=== PATIENT | male | born 1980 | race Caucasian/White ===

== ENCOUNTER 2017-03-18 02:56 | Emergency (ER) | payer OTHER, BC ==
[2017-03-18] MEDS ORDERED: LANSOPRAZOLE30 MG PO (03:17)
[2017-03-18] MEDS ORDERED: MONTELUKAST SOD10 MG PO (03:17)
[2017-03-18] MEDS ORDERED: FLUTICASONE PRO16 GM NAS (03:17)
== END 2017-03-18 03:54 | disposition home or self-care (01) ==
LOC: ED 02:56
DX: S60.221A Contusion of right hand, initial encounter (principal); Z88.1 Allergy status to other antibiotic agents; Z79.899 Other long term (current) drug therapy; W31.89XA Contact with other specified machinery, initial encounter
CPT/HCPCS: 73130; 99283

== ENCOUNTER 2017-11-16 18:51 | Inpatient (IN) | payer BC ==
[~2017-11-16] VITALS: Ht 195.6 cm; Wt 114.9 kg
[~2017-11-16 18:51] MED LIST: FLUTICASONE PRO16 GM NAS; LANSOPRAZOLE30 MG PO; MONTELUKAST SOD10 MG PO
--- NOTE | 2017-11-18 06:01 | CONS ---
[facility] [address] [place], [place] [address] Signed DATE OF CONSULTATION: 11/17/2017 CHIEF COMPLAINT: Epigastric abdominal pain with nausea and vomiting. 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 He then had a small bowel obstruction in the 7th grade requiring lysis of adhesions through a midline periumbilical incision while living in [place], [place]. He returns now with 2-1/2 days of abdominal distention, nausea, and vomiting. He recognized it as a small bowel obstruction. In the emergency room, he was a little distended, but generally soft with unremarkable vital signs. His white count was initially up at 17, it is down to 10.2. He was a little dehydrated , we can see that on his labs. The CT scan showed the dilated bowel in the mid abdomen. However, he did have an upper GI small bowel follow-through in 2017, which showed a dilated loop probably chronic. Nevertheless, he is certainly symptomatic at this time. He was admitted overnight with an NG tube, several 100 mL of light bilious fluid has been extracted, and he said overall, he is feeling a little better. Consequently, I have been asked to admit him as a general surgeon on-call. PAST MEDICAL HISTORY: Ileal atresia, small bowel obstruction, and asthma. PAST SURGICAL HISTORY: Small bowel resection at for the ileal atresia and then the lysis of adhesions for the small bowel obstruction in the 7th grade in [place], [place]. SOCIAL HISTORY: He does not smoke. He has occasional drink. He is single and has no children. He works at our local [employer]. Starla Joshi is his primary care provider. He prefers the [facility], Amanda Santos, his mother at [phone]. FAMILY HISTORY: Not reviewed. REVIEW OF SYSTEMS: He had 10 systems reviewed and no new additions. ALLERGIES: Amoxicillin. MEDICATIONS: Montelukast, Protonix, and fluticasone. Electronically Signed By: EMMY STAFFORD MD 11/18/17 0601 PATIENT NAME: NAYANA SANTOS CONSULTATION DATE OF : 80 REPORT #: [id number] PHYSICIAN: EMMY STAFFORD MD PCP: STARLA JOSHI REPORT IS CONFIDENTIAL AND NOT TO BE RELEASED WITHOUT AUTHORIZATION [facility] [address] [place], [place] [address] Signed PHYSICAL EXAMINATION: VITAL SIGNS: Blood pressure 120/73, heart rate 75, respiratory rate 16, temperature is 98.7, he is 95% on room air. He is 6 feet 5 inches and 114 kg. GENERAL: This is a 37-year-old gentleman who appears generally healthy and at his stated age. He was sleeping, but easily awakened. He does not appear systemically ill or toxic. His friend is at the bedside. LUNGS: Clear to auscultation. HEART: Regular rate and rhythm. ABDOMEN: Soft, flat, nontender with a small umbilical hernia, which is reducible. LABORATORY DATA: White count was 17, it is down to 10.2; hemoglobin 15; neutrophils are 84, down to 70. BUN 16, creatinine 1.0. His liver function tests are negative. Albumin is 4.6. RADIOGRAPHIC STUDIES: The upper GI small bowel follow-through from March 2017, showed dilated section of small bowel out in the ileum, probably chronic. Chest x-ray showed his NG tube is in the stomach. CT scan and pelvis shows mid small bowel obstruction. ASSESSMENT AND PLAN: Nayana is a 37-year-old gentleman, who may have an acute on chronic small bowel obstruction. At this point, he has been admitted, IV fluids and NG tube was placed. We held his antibiotics for now. We are going to treat him conservatively and see how it goes. If not, he may need surgery once again. He is quite aware of this. He has expressed understanding and agrees above plan. Emmy Stafford MD ALB/MODL /[id number] cc: MD Starla Cornell PA Copies: EMMY STAFFORD MD Electronically Signed By: EMMY STAFFORD MD 11/18/17 0601 PATIENT NAME: NAYANA SATNOS CONSULTATION DATE OF : 80 REPORT #: [id number] PHYSICIAN: EMMY STAFFORD MD PCP: STARLA JOSHI REPORT IS CONFIDENTIAL AND NOT TO BE RELEASED WITHOUT AUTHORIZATION [address] [address] Signed STARLA JOSHI ~ Electronically Signed By: EMMY STAFFORD MD 11/18/17 0601 PATIENT NAME: NAYANA SANTOS CONSULTATION DATE OF : 80 REPORT #: [id number] PHYSICIAN: EMMY STAFFORD MD PCP: STARLA JOSHI REPORT IS CONFIDENTIAL AND NOT TO BE RELEASED WITHOUT AUTHORIZATION
[2017-11-18] MEDS ORDERED: VENTOLIN HFA18 GM INH (09:41)
[2017-11-18] MEDS ORDERED: WAL-PHED 12 HO120 MG PO (11:05)
--- NOTE | 2017-11-22 19:49 | DS ---
[facility] [address] [place], [place] [address] Signed ADMISSION DATE: 11/19/2017 DISCHARGE DATE: 11/21/2017 FINAL DIAGNOSES: 1. Resolved partial small bowel obstruction. 2. History of ileal atresia at , requiring small bowel resection x3 with re-anastomosis. 3. Small bowel obstruction, requiring lysis of adhesions in 7th grade. 4. Small periumbilical incisional hernia. PROCEDURES: 1. CT scan of abdomen AND pelvis. 2. Small-bowel follow-through. HISTORY OF PRESENT ILLNESS: Matt is a 37-year-old gentleman, who was born with ileal atresia. He required resection of 3 segments of his small bowel according to his mother. He was put back together and fortunately did well. In the 7th grade, however, he developed a small bowel obstruction, requiring lysis of adhesions. He came to our emergency room with abdominal distention, nausea and vomiting and felt like he had a bowel obstruction. In the emergency room, his vital signs were fine, but his white count was elevated and the CT scan showed what looked like a small bowel obstruction. I was asked to admit him as the general surgeon on-call. HOSPITAL COURSE: Matt was admitted as above and we withheld antibiotics. We placed an NG tube with return of light bilious fluid and gave him plenty of IV fluids. Last summer, he had an upper GI small-bowel follow-through performed and he has a persistently dilated section of small bowel probably twice normal in diameter. The rest of small bowel seemed unremarkable. He made improvements and had passed some gas and bowel movements and his NG tube output dropped off, so I checked a small-bowel follow-through and again, he did fine except for this persistently dilated section of small bowel. I suspect he has an anastomosis or either into that small bowel and it is probably a partial closed-loop obstruction so to speak. Nevertheless, he continued to do well. He has tolerated his soft diet and at this point, we are going to be discharging him to home. His abdominal exam is benign. He is continued to have several bowel movements and passed gas. DISCHARGE PLANS AND MEDICATIONS: Matt will be discharged to home with no new medications. He can resume any chronic medications that he had. I have asked him to follow a low-fiber diet at least for 4 or 5 days and then go back to a regular diet. I have reviewed our findings with Matt and Electronically Signed By: EMMY STAFFORD MD 11/22/17 1949 PATIENT NAME: BOB SANTOS DISCHARGE SUMMARY DATE OF : 80 REPORT #: [id number] PHYSICIAN: EMMY STAFFORD MD PCP: STARLA BASHIR REPORT IS CONFIDENTIAL AND NOT TO BE RELEASED WITHOUT AUTHORIZATION [facility] [address] [place], [place] [address] Signed his mom multiple times. We would only operate for Matt obviously if we absolutely needed to. There is always a chance that he also has recurrent scar tissue causing trouble as well. I explained to Matt that he can follow up in my office as needed. He has expressed understanding and agrees with above plan. MD CRYSTAL oCrnell/CHANELL /[id number] cc: MD Starla Cornell PA Copies: EMMY STAFFORD MD, LINDA PA ~ Electronically Signed By: EMMY STAFFORD MD 11/22/17 1949 PATIENT NAME: BOB SANTOS DISCHARGE SUMMARY DATE OF : 80 REPORT #: [id number] PHYSICIAN: EMMY STAFFORD MD PCP: STARLA BASHIR REPORT IS CONFIDENTIAL AND NOT TO BE RELEASED WITHOUT AUTHORIZATION
== END 2017-11-21 11:19 | disposition home or self-care (01) | DRG 390 ==
LOC: ED 18:51 → MS 18:52
PROVIDERS: ADMIT Colon & Rectal Surgery
PROC: 0D9670Z Drainage of Stomach with Drainage Device, Via Natural or Artificial Opening (ICD-10-PCS; principal; 2017-11-16)
DX: K56.51 Intestinal adhesions [bands], with partial obstruction (principal); J45.909 Unspecified asthma, uncomplicated; K43.2 Incisional hernia without obstruction or gangrene; Z90.49 Acquired absence of other specified parts of digestive tract; Z88.1 Allergy status to other antibiotic agents
CPT/HCPCS: 36415; 43752; 51798; 71045; 74019; 74177; 74250; 80048; 80053; 81001; 83690; 83735; 84075; 84100; 85025; 96361; 96372; 96374; 96375; 96376; 99285; 99406; G0378; J1170; J1644; J2405; J7030; J7120; Q9967

== ENCOUNTER 2019-03-02 08:38 | Emergency (ER) | payer BC ==
[~2019-03-02] VITALS: Ht 195.6 cm; Wt 114.9 kg
[~2019-03-02 08:38] MED LIST changes: +VENTOLIN HFA18 GM INH; +WAL-PHED 12 HO120 MG PO
--- OUTSIDE RECORDS SUMMARY | 2019-03-02 08:40 | XMS ---
PreManage Notification: BOB SANTOS Security Rib Bender Events No recent Security Events currently on file [facility] There are no care providers on record at this time. Carolyn has no Care Guidelines for this patient. Gina VISIT COUNT (12 MO.) 1 RACHEAL [place] TOTAL 1 NOTE: Visits indicate total known visits. ED/UCC VISIT TRACKING (12 MO.) 03/02/2019 08:39 [place] [place] TYPE: Emergency COMPLAINT: - CHEST DISCOMFORT INPATIENT VISIT TRACKING (12 MO.) No inpatient visits to display in this time frame [email or web address]
--- NOTE | 2019-03-02 19:05 | EKG ---
[facility] [address] [facility] [place] [address] Signed Normal sinus rhythm Incomplete right bundle branch block Borderline ECG No previous ECGs available Confirmed by BEATRIZ CASTANON MD ([id number]) on 03/02/2019 7:04:50 PM Electronically Signed By: BEATRIZ CASTANON MD 03/02/19 1905 PATIENT NAME: BOB SANTOS Electrocardiogram DATE OF : 80 PHYSICIAN: BEATRIZ CASTANON MD REPORT #: [id number] REPORT IS CONFIDENTIAL AND NOT TO BE RELEASED WITHOUT AUTHORIZATION
== END 2019-03-02 10:25 | disposition home or self-care (01) ==
LOC: ED 08:38
DX: R07.89 Other chest pain (principal); R00.2 Palpitations; Z87.891 Personal history of nicotine dependence; Z88.0 Allergy status to penicillin; Z79.899 Other long term (current) drug therapy
CPT/HCPCS: 71045; 80053; 83735; 84439; 84443; 84484; 85025; 93005; 93010; 99285-25

== ENCOUNTER 2019-09-13 18:34 | Emergency (ER) | payer BC ==
[~2019-09-13] VITALS: Ht 195.6 cm; Wt 114.9 kg
--- NOTE | 2019-09-13 21:17 | EKG ---
[facility] [address] [facility] [place], [place] [address] Signed Normal sinus rhythm Possible Left atrial enlargement Incomplete right bundle branch block Borderline ECG When compared with ECG of 02-MAR-2019 08:50, No significant change was found Confirmed by BEATRIZ CASTANON MD ([id number]) on 09/13/2019 9:16:50 PM Electronically Signed By: BEATRIZ CASTANON MD 09/13/19 2117 PATIENT NAME: BOB SANTOS JOSE Electrocardiogram DATE OF : 80 PHYSICIAN: BEATRIZ CASTANON MD REPORT #: [id number] REPORT IS CONFIDENTIAL AND NOT TO BE RELEASED WITHOUT AUTHORIZATION
== END 2019-09-13 21:07 | disposition home or self-care (01) ==
LOC: ED 18:34
DX: R00.2 Palpitations (principal); R20.2 Paresthesia of skin; Z88.0 Allergy status to penicillin; Z79.899 Other long term (current) drug therapy
CPT/HCPCS: 70450; 71045; 80053; 83735; 84484; 85025; 93005; 93010; 99285-25

== ENCOUNTER 2019-10-21 07:19 | Day surgery (SDC) | payer BC ==
[~2019-10-21] VITALS: Ht 195.6 cm; Wt 123.8 kg
[2019-10-21] MEDS ORDERED: CITALOPRAM HBR20 MG PO (07:35)
--- NOTE | 2019-10-21 08:27 | NUR ---
10/21/19 0827 Kortney Maher 08-PT ARRIVES TO PACU FROM ENDO ROOM ON 3 L VIA NC. PT AWAKE AND TALKING TO RNS. PT FALLS BACK ASLEEP BUT WAKES EASILY TO VERBAL STIMULUS. VSS.
--- NOTE | 2019-10-21 11:58 | OR ---
[facility] [address] [place], [place] [address] Signed DATE OF OPERATION: 10/21/2019 SURGEON: Emmy Stafford MD PREOPERATIVE DIAGNOSES: 1. Gastroesophageal reflux disease. 2. Hiatal hernia. 3. Chronic diarrhea. 4. Nausea. POSTOPERATIVE DIAGNOSES: 1. 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 2. Moderate diffuse gastritis. PROCEDURE: EGD with CLOtest and biopsies of the duodenum, pyloric bulb, antrum, GE junction, distal esophagus and mid esophagus. ESTIMATED BLOOD LOSS: None. INDICATIONS: Matt is a 39-year-old gentleman, asked to see me for upper endoscopy. He describes acid reflux for many years. He had an upper GI last year. There was a small hiatal hernia with acid reflux. There was mention of felinization of the lower esophagus. He has been on Protonix. He is still having breakthrough symptoms. He also had ileal atresia at and lost a large amount of his small bowel. Apparently, the ileocecal valve was in place. He has a chronically dilated area of small bowel 20 cm in length and probably 8 cm in diameter. That may or may not explain his chronic intermittent nausea. He also talks about the lifelong diarrhea and the heartburn with the nausea. He also has significant anxiety and panic attacks. In the office, I gave him a booklet on upper endoscopy. We reviewed that in detail. He understands the nature of the test along with the risks including, but not limited to gas bloating, crampy abdominal pain, bleeding, perforation requiring surgery, and missed diagnosis. We also discussed the need for IV conscious sedation. We asked Matt to go ahead and take two of his Xanax pills before coming to the hospital. He did comply with that today. That did help out. He had expressed understanding and wished to proceed. PROCEDURE NOTE: Matt was taken into our endoscopy suite and placed in the supine semi-recumbent Electronically Signed By: EMMY STAFFORD MD 10/21/19 1158 PATIENT NAME: BOB SANTOS OPERATIVE REPORT DATE OF : 80 REPORT #: [id number] PHYSICIAN: EMMY STAFFORD MD PCP: STARLA BASHIR REPORT IS CONFIDENTIAL AND NOT TO BE RELEASED WITHOUT AUTHORIZATION [facility] [address] [place] [address] Signed position. The posterior oropharynx was anesthetized with Hurricaine spray. A bite block was utilized for the case. He was given a total of 8 mg of Versed and 150 mcg of fentanyl to cover the case. The adult gastroscope had been introduced and advanced out into the 2nd portion of the duodenum without difficulty. The duodenum and pyloric bulb were visibly unremarkable. We went ahead and took a biopsy from the duodenum and the pyloric bulb for pathologic review. However, the stomach showed moderate diffuse erythematous changes throughout consistent with gastritis. Consequently, we took a biopsy of the antrum for CLOtest as well as pathologic review. Upon retroflexion of scope, he has what might be a very small hiatal hernia. However, it appears more likely that he has a very short lower esophageal sphincter. It measured out from 40-42 cm. We saw no gastric or esophageal varices. There were no ulcerations in the pyloric bulb or the stomach. His lower esophageal sphincter is patent but seems to be short. There was minimal disruption to the Z-line. We went ahead and took a biopsy of the Z-line for pathologic review. There was no Daigle's mucosa. We saw no felinization of the esophagus. Nevertheless, we went ahead and took a biopsy of the distal esophagus as well as the mid esophagus. The proximal esophagus was also unremarkable. After this, the gas was suctioned out and the gastroscope removed. Matt tolerated procedure quite well. RECOMMENDATIONS: I will see Matt back in my office in 7 to 14 days to review his results. In the meantime, he will stay on his Protonix. Emmy Stafford MD [facility]/MODL /[id number] cc: MD Starla Cornell PA Copies: EMMY STAFFORD MD Electronically Signed By: EMMY STAFFORD MD 10/21/19 1158 PATIENT NAME: BOB SANTOS OPERATIVE REPORT DATE OF : 80 REPORT #: [id number] PHYSICIAN: EMMY STAFFORD MD PCP: STARLA BASHIR REPORT IS CONFIDENTIAL AND NOT TO BE RELEASED WITHOUT AUTHORIZATION [address] [address] Signed STARLA BASHIR ~ Electronically Signed By: EMMY STAFFORD MD 10/21/19 1158 PATIENT NAME: BOB SANTOS OPERATIVE REPORT DATE OF : [birth year] REPORT #: [id number] PHYSICIAN: EMMY STAFFORD MD PCP: STARLA BASHIR REPORT IS CONFIDENTIAL AND NOT TO BE RELEASED WITHOUT AUTHORIZATION
--- NOTE | 2019-10-22 16:01 | PATH ---
[facility] [place] [facility] [address] [place], [place] [address] Signed SPECIMEN(S): A DUODENUM, SECOND SPECIMEN(S): B DUODENUM BULB SPECIMEN(S): C ANTRUM/PYLORUS SPECIMEN(S): D GE JUNCTION SPECIMEN(S): E DISTAL LOWER ESOPHAGUS SPECIMEN(S): F MIDDLE ESOPHAGUS SPECIMEN SOURCE: A. DUODENUM, SECOND B. DUODENUM BULB C. ANTRUM/PYLORUS D. GE JUNCTION E. DISTAL LOWER ESOPHAGUS F. MIDDLE ESOPHAGUS CLINICAL HISTORY: Hx: Acid reflux, small hiatal hernia, diarrhea. Postop: Gastritis, small hiatal hernia. MICROSCOPIC DESCRIPTION: Histologic sections of all submitted blocks are examined by light microscopy. These findings, together with the gross examination, support the pathologic diagnosis. FINAL PATHOLOGIC DIAGNOSIS: A. Duodenum, second portion, biopsy: - Duodenal mucosa with no histopathologic abnormality. - Negative for dysplasia or malignancy. B. Duodenum, bulb, biopsy: - Duodenal mucosa with mild increased lamina propria chronic inflammation. - Negative for dysplasia or malignancy. C. Stomach, antrum/pylorus, biopsy: - Antral mucosa with mild mucosal capillary congestion. - Negative for Helicobacter organisms on HE stain. - Negative for dysplasia or malignancy. D. Gastroesophageal junction, biopsy: - Squamocolumnar junctional mucosa with chronic inflammation and reactive epithelial changes, consistent with reflux esophagitis. - Negative for Helicobacter organisms on HE stain. - Negative for intestinal metaplasia, dysplasia, or malignancy. E. Esophagus, distal lower, biopsy: - Squamous mucosa with reactive changes consistent with reflux esophagitis. PATIENT NAME: BOB SANTOS PATHOLOGY DATE OF : [birth year] REPORT #: [id number] PHYSICIAN: CARISSA SHAW PCP: JONATHAN BASHIR REPORT IS CONFIDENTIAL AND NOT TO BE RELEASED WITHOUT AUTHORIZATION [facility] [place] [facility] [address] [place], [place] [address] Signed - Negative for intestinal metaplasia, dysplasia, or malignancy. F. Esophagus, middle, biopsy: - Squamous mucosa with minimal chronic inflammation, suggestive of mild reflux esophagitis. - Negative for intestinal metaplasia, dysplasia, or malignancy. NAL:emb:C2NR GROSS DESCRIPTION: Six specimens are received in six containers, labeled "ST." A. The specimen, labeled "ST, #1" and "duodenum, second" on the requisition, is received in formalin and consists of a 0.3 cm soft carroll tissue fragment that is entirely submitted in cassette A1. B. The specimen, labeled "ST, #2" and "duodenum bulb" on the requisition, is received in formalin and consists of a 0.2 cm soft carroll tissue fragment that is submitted in toto in cassette B1. C. The specimen, labeled "ST, #3" and "antrum/pylorus" on the requisition, is received in formalin and consists of a 0.3 cm soft carroll tissue fragment that is submitted in toto in cassette C1. D. The specimen, labeled "ST, #4" and "GE junction" on the requisition, is received in formalin and consists of a 0.4 cm soft carroll tissue fragment that is submitted in toto in cassette D1. E. The specimen, labeled "ST, #5" and "distal lower esophagus" on the requisition, is received in formalin and consists of a 0.3 cm soft muhammad flat tissue fragment that is submitted in toto in cassette E1. F. The specimen, labeled "ST, #6" and "middle esophagus" on the requisition, is received in formalin and consists of a 0.3 cm soft carroll flat tissue fragment that is submitted in toto in cassette F1. SS (under the direct supervision of a pathologist) The Gross Description was prepared using a voice recognition system. The report was reviewed for accuracy; however, sound-alike word errors, addition and/or deletions may occur. If there is any question about this report, please contact Client Services. PERFORMING LABORATORY: The technical component was performed by [employer] [address] (Aeronautical Test Engineer: Mickie Shafer MD; CLIA# [id number]). Professional interpretation was performed by [facility], [address] [address] (CLIA# [id number]). PATIENT NAME: BOB SANTOS PATHOLOGY DATE OF : [birth year] REPORT #: [id number] PHYSICIAN: CARISSA PATHOLOGY PCP: JONATHAN BASHIR REPORT IS CONFIDENTIAL AND NOT TO BE RELEASED WITHOUT AUTHORIZATION [facility] [place] [facility] [address] [place], [place] [address] Signed Diagnostician: Sejal Mendez MD Pathologist Electronically Signed 10/22/2019 Copies: ~ PATIENT NAME: TOMIGORARACELI GARCIA PATHOLOGY DATE OF : 80 REPORT #: [id number] PHYSICIAN: CARISSA SHAW PCP: JONATHAN BASHIR REPORT IS CONFIDENTIAL AND NOT TO BE RELEASED WITHOUT AUTHORIZATION
== END 2019-10-21 09:10 | disposition home or self-care (01) ==
LOC: OPS 07:19 → DS 07:19 → OPS 08:15
PROVIDERS: Colon & Rectal Surgery
PROC: 0DB78ZX Excision of Stomach, Pylorus, Via Natural or Artificial Opening Endoscopic, Diagnostic (ICD-10-PCS; 2019-10-21)
PROC: 0DB38ZX Excision of Lower Esophagus, Via Natural or Artificial Opening Endoscopic, Diagnostic (ICD-10-PCS; 2019-10-21)
PROC: 0DB48ZX Excision of Esophagogastric Junction, Via Natural or Artificial Opening Endoscopic, Diagnostic (ICD-10-PCS; 2019-10-21)
PROC: 0DB28ZX Excision of Middle Esophagus, Via Natural or Artificial Opening Endoscopic, Diagnostic (ICD-10-PCS; 2019-10-21)
PROC: 0DB98ZX Excision of Duodenum, Via Natural or Artificial Opening Endoscopic, Diagnostic (ICD-10-PCS; principal; 2019-10-21 08:15)
DX: K21.0 Gastro-esophageal reflux disease with esophagitis (principal); K29.80 Duodenitis without bleeding; K29.70 Gastritis, unspecified, without bleeding; K52.9 Noninfective gastroenteritis and colitis, unspecified; I10 Essential (primary) hypertension; E66.9 Obesity, unspecified; E03.9 Hypothyroidism, unspecified; F41.9 Anxiety disorder, unspecified; F17.220 Nicotine dependence, chewing tobacco, uncomplicated; Z79.899 Other long term (current) drug therapy; Z98.890 Other specified postprocedural states; Z88.0 Allergy status to penicillin
CPT/HCPCS: 86677; 99153; G0500; J2250; J3010

== ENCOUNTER 2022-06-27 22:04 | Emergency (ER) | payer BC ==
[~2022-06-27] VITALS: Ht 195.6 cm; Wt 129.9 kg
[~2022-06-27 22:04] MED LIST changes: +CITALOPRAM HBR20 MG PO
[2022-06-28] MEDS ORDERED: HYDROXYZINE HCL50 MG PO (02:06)
--- NOTE | 2022-06-30 20:44 | EKG ---
[facility] [address] [facility] [place] [address] Signed Normal sinus rhythm Normal ECG When compared with ECG of 13-SEP-2019 18:44, No significant change was found Confirmed by Stephanie Brock MD () on 06/30/2022 8:44:23 PM Electronically Signed By: STEPHANIE BROCK MD 06/30/222043 PATIENT NAME: BOB SANTOS Electrocardiogram DATE OF : 80 PHYSICIAN: STEPHANIE BROCK MD REPORT #: [id number] REPORT IS CONFIDENTIAL AND NOT TO BE RELEASED WITHOUT AUTHORIZATION
== END 2022-06-28 02:36 | disposition home or self-care (01) ==
LOC: ED 22:04
DX: F41.9 Anxiety disorder, unspecified (principal); R51.9 Headache, unspecified; Z88.0 Allergy status to penicillin; R03.0 Elevated blood-pressure reading, without diagnosis of hypertension
CPT/HCPCS: 36415; 70450; 70496; 70498; 80053; 81001; 84484; 85025; 93005; 93010; 99285-25; Q9967

== ENCOUNTER 2023-01-31 06:46 | Day surgery (SDC) | payer BC ==
[2023-01-22 15:37] VITALS: BP 141/98
[~2023-01-31] VITALS: Ht 195.6 cm; Wt 131.8 kg
[~2023-01-31 06:46] MED LIST changes: +CELEXA10 MG PO; +HYDROXYZINE HCL50 MG PO
[2023-01-31 07:08] VITALS: BP 147/92
--- NOTE | 2023-01-31 09:08 | NUR ---
01/31/23 0908 Leny Aldana SN 0902 PATIENT ARRIVES TO PACU UNRESPONSIVE TO PAINFUL STIMULI. ORAL AIRWAY IN PLACE. RESP EVEN AND UNLABORED. O2 MASK AT 10 LITERS.
[2023-01-31 09:39] VITALS: BP 122/85
--- NOTE | 2023-01-31 10:26 | OR ---
[facility] [address] [place], [place] [address] Signed DATE OF OPERATION: 01/31/2023 SURGEON: Emmy Stafford MD PREOPERATIVE DIAGNOSES: 1. Maternal grandfather with colon cancer in his 60s. 2. Maternal great uncle with colon cancer in his 50s. 3. Maternal half uncle with colon cancer in his 60s. 4. Maternal uncle with colon cancer approximate age 70. 5. Mother with colon polyps in her 50s. POSTOPERATIVE DIAGNOSES: 1. Minimal sigmoid diverticulosis. 2. 5 mm polyp at 55 cm in left colon. 3. 5 mm polyp at 28 cm in sigmoid colon. 4. 7 mm polyp at 5 cm in rectum. 5. Minimal to moderate internal and external hemorrhoids. PROCEDURE: Colonoscopy with hot biopsy. ESTIMATED BLOOD LOSS: None. INDICATIONS: Nayana is a 42-year-old gentleman, asked to see me for his initial colonoscopy. He has an extensive history of colon cancer and polyps as listed above. I 1st met Matt back in 2019 at the age of 38. He wanted to hold off and come at this time for his colonoscopy. He told me that as a child he needed surgery for ileal atresia and has a loop of bowel that bothers him. He later had lysis of adhesions and appendectomy in the 7th grade. He has a persistent dilated loops of small bowel and he has some diarrhea associated with that. He goes on a clear liquid diet and it passes. In the office, I gave him a pamphlet on colonoscopy and we reviewed that together. He understands there is risk including, but not limited to gas bloating, crampy abdominal pain, bleeding, perforation requiring surgery and missed diagnosis. We also reviewed the written instructions for the bowel prep line by line. Also because of his significant sleep apnea, we asked for monitored anesthesia care with propofol infusion. That actually proved to be a hunter decision. He had expressed understanding and wished to proceed. PROCEDURE NOTE: Electronically Signed By: EMMY STAFFORD MD 01/31/23 1026 PATIENT NAME: NAYANA SANTOS OPERATIVE REPORT DATE OF : 80 REPORT #: [id number] PHYSICIAN: EMMY STAFFORD MD PCP: ROMEO PEREZ PA-C REPORT IS CONFIDENTIAL AND NOT TO BE RELEASED WITHOUT AUTHORIZATION [facility] [address] [place], [place] [address] Signed Matt was taken into our endoscopy suite and placed in the left lateral decubitus position. He was given monitored anesthesia care with propofol infusion per our nurse j2ee java developer. He needed constant airway control as well as an oral airway. He seems to have central sleep apnea. A digital rectal exam was performed and he does have moderate circumferential external hemorrhoids. He had good sphincter tone. There were no masses. The adult colonoscope was introduced and advanced under direct visualization of the camera up into the cecum without difficulty. His prep was good. The scope was then slowly withdrawn. We took pictures throughout for photodocumentation. The above-mentioned polyps were easily removed with the help of hot biopsy forceps. He also had a few small diverticula in the sigmoid colon. They were small, few in number and scattered about. Once in the rectum, the scope was retroflexed and he does have small to moderate sized internal hemorrhoid columns as well. After this, the gas was suctioned out and the colonoscope removed. Matt tolerated the procedure quite well. RECOMMENDATIONS: I will see Matt back in my office in 7 to 14 days to review his results. It looks like he is going to stay on the five year plan. He will always need monitored anesthesia care with propofol infusion. Emmy Stafford MD ALB/MODL /[id number] cc: PHAM Jones MD Copies: ROMEO PEREZ PA-C, ANDREW L MD ~ Electronically Signed By: EMMY STAFFORD MD 01/31/23 1026 PATIENT NAME: NAYANA SANTOS OPERATIVE REPORT DATE OF : [birth year] REPORT #: [id number] PHYSICIAN: EMMY STAFFORD MD PCP: ROMEO PEREZ PA-C REPORT IS CONFIDENTIAL AND NOT TO BE RELEASED WITHOUT AUTHORIZATION
--- NOTE | 2023-01-31 18:46 | EKG ---
[facility] [address] [facility] [place], [place] [address] Signed Normal sinus rhythm Normal ECG When compared with ECG of 27-JUN-2022 23:44, No significant change was found Confirmed by BEATRIZ CASTANON MD ([id number]) on 01/31/2023 6:45:58 PM Electronically Signed By: BEATRIZ CASTANON MD 01/31/23 1846 PATIENT NAME: BOB SANTOS Electrocardiogram DATE OF : 80 PHYSICIAN: BEATRIZ CASTANON MD REPORT #: [id number] REPORT IS CONFIDENTIAL AND NOT TO BE RELEASED WITHOUT AUTHORIZATION
--- NOTE | 2023-02-04 15:08 | PATH ---
[facility] [address] [facility] [place], [place] [address] Signed SPECIMEN(S): A DESCENDING/LEFT COLON POLYP AT 55 CM SPECIMEN(S): B SIGMOID POLYP AT 28 CM SPECIMEN(S): C RECTAL POLYPS AT 5 CM SPECIMEN SOURCE: A. DESCENDING/LEFT COLON POLYP AT 55 CM B. SIGMOID POLYP AT 28 CM C. RECTAL POLYPS AT 5 CM CLINICAL HISTORY: Extensive family history of colon polyps and cancer. Post: Polyps x 3, diverticulosis, internal and external hemorrhoids. FINAL PATHOLOGIC DIAGNOSIS: A Descending / left colon polyp at 55 cm: - Tubular adenoma (one fragment). B. Sigmoid polyp at 28 cm: - Tubular adenoma (one fragment). C. Rectal polyps at 5 cm: - Tubular adenoma (multiple fragments). JVR:[id number] MICROSCOPIC EXAMINATION: Histologic sections of all submitted blocks are examined by light microscopy. These findings, together with the gross examination, support the pathologic diagnosis. GROSS DESCRIPTION: A. The specimen, labeled and designated "Julianne, descending/left colon polyp at 55 cm," is received in formalin and consists of one carroll soft tissue fragment, 0.1 cm. Entirely submitted in (A1). B. The specimen, labeled and designated "Julianne, sigmoid polyp at 28 cm," is received in formalin and consists of one carroll soft tissue fragment, 0.3 cm. Entirely submitted in (B1). C. The specimen, labeled and designated "Julianne, rectal polyps at 5 cm," is received in formalin and consists of five carroll soft tissue fragments, ranging from 0.1-0.3 cm. Entirely submitted in (C1). VB (under the direct supervision of a pathologist) The Gross Description was prepared using a voice recognition system. The report was reviewed for accuracy; however, sound-alike word errors, addition and/or deletions may occur. If there is any PATIENT NAME: BOB SANTOS PATHOLOGY DATE OF : 80 REPORT #: [id number] PHYSICIAN: CARISSA SHAW PCP: ROMEO PEREZ PA-C REPORT IS CONFIDENTIAL AND NOT TO BE RELEASED WITHOUT AUTHORIZATION [facility] [address] [place], [place] [address] Signed question about this report, please contact Client Services. PERFORMING LABORATORY: The technical component was performed by [facility], [address] [place] [id number] (CLIA# [id number]). Professional interpretation was performed by [facility], [address] [place] [id number] (CLIA#: [id number]). Diagnostician: Melvin Alcaraz MD Pathologist Electronically Signed 02/04/2023 Copies: ~ PATIENT NAME: BOB SANTOS PATHOLOGY DATE OF : [birth year] REPORT #: [id number] PHYSICIAN: CARISSA SHAW PCP: ROMEO PEREZ PA-C REPORT IS CONFIDENTIAL AND NOT TO BE RELEASED WITHOUT AUTHORIZATION
== END 2023-01-31 09:50 | disposition home or self-care (01) ==
LOC: OPS 06:46 → DS 06:46 → OPS 08:15
PROVIDERS: ATTEND Colon & Rectal Surgery
PROC: 0DBN8ZZ Excision of Sigmoid Colon, Via Natural or Artificial Opening Endoscopic (ICD-10-PCS; 2023-01-31)
PROC: 0DBP8ZZ Excision of Rectum, Via Natural or Artificial Opening Endoscopic (ICD-10-PCS; 2023-01-31)
PROC: 0DBM8ZZ Excision of Descending Colon, Via Natural or Artificial Opening Endoscopic (ICD-10-PCS; principal; 2023-01-31 08:15)
DX: D12.4 Benign neoplasm of descending colon (principal); D12.5 Benign neoplasm of sigmoid colon; D12.8 Benign neoplasm of rectum; K52.9 Noninfective gastroenteritis and colitis, unspecified; Z80.0 Family history of malignant neoplasm of digestive organs; Z83.71 Family history of colonic polyps; G47.33 Obstructive sleep apnea (adult) (pediatric); F41.9 Anxiety disorder, unspecified; J30.2 Other seasonal allergic rhinitis; K63.5 Polyp of colon; K57.30 Diverticulosis of large intestine without perforation or abscess without bleeding; K64.8 Other hemorrhoids; K64.4 Residual hemorrhoidal skin tags
CPT/HCPCS: 93005; 93010; J2704; J7121

== ENCOUNTER 2023-07-18 15:41 | Emergency (ER) | payer OTHER, BC ==
[~2023-07-18] VITALS: Ht 195.6 cm; Wt 130.2 kg
[~2023-07-18 15:41] MED LIST changes: +LISINOPRIL10 MG PO; +NAPROSYN500 MG PO
[2023-07-18] MEDS ORDERED: HYDROCODON-ACE1 EA10 PO (16:19)
[2023-07-18 17:15] VITALS: BP 130/81
== END 2023-07-18 17:15 | disposition home or self-care (01) ==
LOC: ED 15:41
DX: S46.002A Unspecified injury of muscle(s) and tendon(s) of the rotator cuff of left shoulder, initial encounter (principal); X58.XXXA Exposure to other specified factors, initial encounter; Z88.0 Allergy status to penicillin; Z79.899 Other long term (current) drug therapy
CPT/HCPCS: 96372; 99283; J2270